=== PATIENT | male | born 1985 ===

== ENCOUNTER 2017-11-03 17:26 | Emergency (ER) | payer SELFPAY ==
[2017-11-03] MEDS ORDERED: Promethazine/Cod 6.25mg-10mg/5ml Syr UD PO STA (19:30)
--- NOTE | 2017-11-03 19:31 | ED PDOC ---
HPI: General Adult Time Seen by Provider: 11/03/17 19:19 Chief Complaint (Nursing): Flu-like Symptoms Chief Complaint (Provider): Flu-like Symptoms History Per: Patient History/Exam Limitations: no limitations Onset/Duration Of Symptoms: Days (x 2) Current Symptoms Are (Timing): Still Present Additional Complaint(s): 32 year old male with no significant medical history presents to the ED complaining of runny nose, congestion, body aches, sore throat, dry cough and fever, onset 2 days ago. Also complains of chest pain associated with his dry cough. Reports coughing more at night. PMD: none provided Past Medical History Reviewed: Historical Data, Nursing Documentation, Vital Signs Vital Signs: Last Vital Signs Temp 100.2 F H 11/03/17 21:05 Pulse 94 H 11/03/17 21:05 Resp 18 11/03/17 21:05 BP 165/79 H 11/03/17 21:05 Pulse Ox 97 11/03/17 22:04 - Medical History PMH: No Chronic Diseases - Surgical History Surgical History: No Surg Hx - Family History Family History: States: Unknown Family Hx - Home Medications Home Medications: Ambulatory Orders Medication Instructions Recorded Oseltamivir [Tamiflu] 75 mg PO BID #10 cap 11/03/17 Promethazine/Codeine 5 ml PO Q6 PRN #50 ml 11/03/17 [Phenergan/Codeine Oral Syrup] - Allergies Allergies/Adverse Reactions: Allergies Allergy/AdvReac Type Severity Reaction Status Date / Time No Known Allergies Allergy Verified 11/03/17 18:33 Review of Systems ROS Statement: Except As Marked, All Systems Reviewed And Found Negative Constitutional: Positive for: Fever, Other (body aches) ENT: Positive for: Nose Discharge, Nose Congestion, Throat Pain Cardiovascular: Positive for: Chest Pain (associated with coughing) Respiratory: Positive for: Cough (dry) Physical Exam - Reviewed Nursing Documentation Reviewed: Yes Vital Signs Reviewed: Yes - Physical Exam Appears: Positive for: Non-toxic, No Acute Distress Head Exam: Positive for: ATRAUMATIC, NORMOCEPHALIC Skin: Positive for: Normal Color, Warm, Dry Eye Exam: Positive for: EOMI, Normal appearance, PERRL ENT: Positive for: Pharyngeal Erythema Neck: Positive for: Normal, Painless ROM, Supple Cardiovascular/Chest: Positive for: Regular Rate, Rhythm. Negative for: Murmur Respiratory: Positive for: Normal Breath Sounds. Negative for: Respiratory Distress Gastrointestinal/Abdominal: Positive for: Normal Exam, Soft. Negative for: Tenderness Back: Positive for: Normal Inspection. Negative for: L CVA Tenderness, R CVA Tenderness Extremity: Positive for: Normal ROM. Negative for: Deformity Neurologic/Psych: Positive for: Alert, Oriented. Negative for: Motor/Sensory Deficits - ECG O2 Sat by Pulse Oximetry: 97 (RA) Pulse Ox Interpretation: Normal Medical Decision Making Medical Decision Making: Time: 19:30 Impression: flu like symptoms Differentials include but are not limited to: influenza, strep Initial Plan: --Chest x-ray --Codeine oral syrup 5 ml PO --Influenza AB --Rapid strep group Scribe Attestation: Documented by Shandra Etienne, acting as a scribe for Atif Gold MD. Provider Scribe Attestation: All medical record entries made by the Scribe were at my direction and personally dictated by me. I have reviewed the chart and agree that the record accurately reflects my personal performance of the history, physical exam, medical decision making, and the department course for this patient. I have also personally directed, reviewed, and agree with the discharge instructions and disposition. Disposition - Clinical Impression Clinical Impression: Influenza - Patient ED Disposition Is Patient to be Admitted: No Doctor Will See Patient In The: Office Counseled Patient/Family Regarding: Studies Performed, Diagnosis, Need For Followup - Disposition Referrals: [facility] [place] [facility] [Outside] Disposition: Routine/Home Disposition Time: 22:04 Condition: GOOD Additional Instructions: Take your medications. Follow up with your PCP in 2-3 days. Prescriptions: Oseltamivir [Tamiflu] 75 mg PO BID #10 cap Promethazine/Codeine [Phenergan/Codeine Oral Syrup] 5 ml PO Q6 PRN #50 ml PRN Reason: Cough Instructions: Influenza (ED) Print Language: CYMRO
[2017-11-03] MEDS ORDERED: Promethazine/Cod 6.25mg-10mg/5ml Syr UD ONE (20:28)
[2017-11-03 21:07] VITALS: RESP 18
[2017-11-03 22:31] VITALS: BP 145/78; PULSE 70; TEMP 99.9
[2017-11-03 22:35] VITALS: O2SAT 97
--- NOTE | 2017-11-04 10:33 | RAD ---
HISTORY: chest pain cough fever COMPARISON: No prior. TECHNIQUE: Chest PA and lateral FINDINGS: LUNGS: No active pulmonary disease. PLEURA: No significant pleural effusion identified. No pneumothorax apparent. CARDIOVASCULAR: Normal. OSSEOUS STRUCTURES: No significant abnormalities. VISUALIZED UPPER ABDOMEN: Normal. OTHER FINDINGS: None. IMPRESSION: No active disease.
== END 2017-11-03 22:31 | disposition home or self-care (01) ==
LOC: H.ER 17:26
DX: J11.1 Influenza due to unidentified influenza virus with other respiratory manifestations (principal)